=== PATIENT | female | born 1995 | race Caucasian/White ===

== ENCOUNTER 2022-12-05 19:23 | Emergency (ER) | payer BC | END 2022-12-05 20:50 | disposition home or self-care (01) | LOC: NAV ERS 19:23 | DX: R23.8 Other skin changes (principal); Z98.890 Other specified postprocedural states | CPT/HCPCS: 99283 ==

== ENCOUNTER 2023-03-17 13:03 | Emergency (ER) | payer BC | END 2023-03-17 15:20 | disposition home or self-care (01) | LOC: NAV ERS 13:03 | DX: J10.1 Influenza due to other identified influenza virus with other respiratory manifestations (principal) | CPT/HCPCS: 87635; 87804; 99284 ==